=== PATIENT | female | born 1995 | race Caucasian/White ===

== ENCOUNTER 2017-01-05 22:56 | Emergency (ER) | payer BC ==
[2017-01-05] MEDS ORDERED: EPINEPHrine 1 mg/ml MDV (1ml Charge) ONE (23:14)
[2017-01-05] MEDS ORDERED: methylPREDNISolone Sod Succ/PF 125 MG/2 ML VIAL ONE (23:55)
== END 2017-01-06 01:07 | disposition home or self-care (01) ==
LOC: BURERS 22:56
DX: L50.0 Allergic urticaria (principal)
CPT/HCPCS: 96361; 96374; J0171; J2930